=== PATIENT | female | born 2000 | race Caucasian/White ===

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

== ENCOUNTER 2019-06-27 18:33 | Emergency (ER) | payer OTHER ==
[2019-06-27] MEDS ORDERED: methylPREDNISolone 125 MG* 2 ML VIAL IV ONE (18:35)
[2019-06-27] MEDS ORDERED: Famotidine IV* 10 MG/ML 2 ML (20 mg) IV SLOW PU ONE (18:35)
--- NOTE | 2019-06-27 19:26 | UC ---
Shortness of Breath HPI - HPI Summary HPI Summary: 18-year-old woman comes in with a chief complaint of difficulty breathing. Patient has a history of asthma. She reports just prior to arrival she was having some shortness of breath which she like an asthma attack and she took one puff of Qvar one puff of albuterol that she felt her heart racing and felt her chest tight. She arrives breathing rapidly and saying her arms and legs feel numb. - History of Current Complaint Chief Complaint: UCRespiratory Stated Complaint: allergic reaction Time Seen by Provider: 06/27/19 18:34 Hx Last Menstrual Period: 2 WKS AGO - Allergy/Home Medications Allergies/Adverse Reactions: Allergies Allergy/AdvReac Type Severity Reaction Status Date / Time erythromycin base Allergy Rash Verified 06/27/19 18:48 Home Medications: Home Medications Albuterol HFA INHALER* [Ventolin HFA Inhaler*] 2 puff INH Q6H PRN 01/16/17 [ History Confirmed 06/27/19] Norethindrone-E.estradiol-Iron [Taytulla 1 mg-20 Mcg Capsule] 1 cap PO DAILY [History Confirmed 06/27/19] Beclomethasone 80 MCG MDI(NF) [Qvar 80 MCG MDI(NF)] 1 puff INH DAILY 06/27/19 [ History Confirmed 06/27/19] Famotidine TAB* [Pepcid 20 MG TAB*] 20 mg PO BID PRN #8 tab 06/27/19 [Rx] predniSONE 20 mg TAB [Deltasone 20 MG TAB*] 40 mg PO DAILY PRN #8 tab 06/27/19 [ Rx] PMH/Surg Hx/FS Hx/Imm Hx Previously Healthy: Yes Respiratory History: Asthma - Surgical History Surgical History: Yes Surgery Procedure, Year, and Place: CYST REMOVED FROM RIGHT WRIST. - Family History Known Family History: Positive: Cardiac Disease, Hypertension, Diabetes - Social History Alcohol Use: Occasionally Substance Use Type: None Smoking Status (MU): Never Smoked Tobacco Review of Systems All Other Systems Reviewed And Are Negative: Yes Constitutional: Positive: Other - SEE HPI Skin: Positive: Negative Eyes: Positive: Negative ENT: Positive: Negative Respiratory: Positive: Shortness Of Breath Cardiovascular: Positive: Other - SEE HPI Gastrointestinal: Positive: Negative Motor: Positive: Negative Neurovascular: Positive: Negative Musculoskeletal: Positive: Negative Neurological/Mental Status: Positive: Negative Psychological: Positive: Anxious Is Patient Immunocompromised?: No Physical Exam Triage Information Reviewed: Yes Appearance: No Pain Distress, Well-Nourished, Other: - Initially patient appeared short of breath. Vital Signs: Initial Vital Signs Temp 98.7 F 06/27/19 18:44 Pulse 141 06/27/19 18:44 Resp 26 06/27/19 18:44 BP 143/59 06/27/19 18:44 Pulse Ox 97 06/27/19 18:44 Vital Signs Reviewed: Yes Eye Exam: Normal Eyes: Positive: Conjunctiva Clear ENT: Positive: Pharynx normal, Other - Oropharynx open Neck: Positive: Supple Respiratory: Positive: Lungs clear, Other: - Tachypnea Cardiovascular: Positive: Tachycardia Musculoskeletal: Positive: ROM Intact Neurological: Positive: Other: - Patient was all 4 extremities. She is anxious Psychological: Positive: Other: - Anxious Skin Exam: Normal Shortness of Breath Dx - Course Course Of Treatment: And clinic patient was given Solu-Medrol 125 mg IV and Pepcid 40 mg IV. Patient improved. On examination I did not hear any wheezing. Will continue to treat with Benadryl Pepcid and prednisone to be used as needed. Patient's can talk to her physician about whether or not to continue the albuterol and Qvar. - Differential Dx/Diagnosis Provider Diagnosis: Shortness of breath Discharge ED - Sign-Out/Discharge Documenting (check all that apply): Patient Departure All imaging exams completed and their final reports reviewed: No Studies - Discharge Plan Condition: Stable Disposition: HOME Prescriptions: Famotidine TAB* [Pepcid 20 MG TAB*] 20 mg PO BID PRN #8 tab PRN Reason: Allergy Symptoms predniSONE 20 mg TAB [Deltasone 20 MG TAB*] 40 mg PO DAILY PRN #8 tab PRN Reason: Allergy Symptoms Patient Education Materials: Shortness of Breath (ED) Referrals: [facility] [Outside] Additional Instructions: FOLLOW UP WITH YOUR DOCTOR. GET REEVALUATED SOONER IF NOT IMPROVED. GO TO THE EMERGENCY DEPARTMENT IF WORSE; DIFFICULTY BREATHING OR SWALLOWING, YOU FEEL ILL OR ANY QUESTIONS OR CONCERNS. TAKE BENADRYL 50MG EVERY 6 HOURS NEEDED TAKE PEPCID 20MG TWICE A DAY NEEDED TAKE PREDNISONE DIRECTED NEEDED - Billing Disposition and Condition Condition: STABLE Disposition: Home
[2019-06-27 19:42] VITALS: BP 130/54
== END 2019-06-27 19:44 | disposition home or self-care (01) ==
LOC: UCCORT 18:33
DX: R06.02 Shortness of breath (principal); J45.909 Unspecified asthma, uncomplicated; Z88.1 Allergy status to other antibiotic agents; Z79.51 Long term (current) use of inhaled steroids
CPT/HCPCS: 96374; 96375; 99212; G0463; J2930